=== PATIENT | male | born 1990 | race American Indian/Alaskan Native ===

== ENCOUNTER 2020-05-25 21:42 | Emergency (ER) | payer SELFPAY ==
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
[2020-05-26 00:33] LABS: Alanine Aminotransferase 14 units/L (7-56); Albumin 4.2 g/dL (3.9-5); BUN/Creatinine Ratio 13; Blood Urea Nitrogen 14 mg/dL (9-20); Calcium 9.4 mg/dL (8.4-10.2); Hemolysis Index 147
[2020-05-26 00:34] LABS: Hematocrit 41.9 % (35.5-45.6); Hemoglobin 14.4 gm/dl (11.8-15.2)
[2020-05-26 03:09] VITALS: BP 113/71
== END 2020-05-26 02:55 | disposition home or self-care (01) ==
LOC: ED 21:42
DX: F17.200 Nicotine dependence, unspecified, uncomplicated (principal); Z20.828 Contact with and (suspected) exposure to other viral communicable diseases; Z00.01 Encounter for general adult medical examination with abnormal findings
CPT/HCPCS: 36415; 80053; 80320; 85014; 85018; 85049; G0480